=== PATIENT | female | born 1975 | race American Indian/Alaskan Native ===

== ENCOUNTER 2016-12-29 20:45 | Emergency (ER) | payer MEDICAID ==
[2016-12-29 20:58] VITALS: BP 125/87
--- NOTE | 2016-12-29 22:43 | Ultrasound Report ---
FINAL REPORT PROCEDURE: US OB \T\gt; = 14 WEEKS FETUS TECHNIQUE: Real-time transabdominal sonography of the uterus, placenta, amniotic fluid, adnexa, and fetus was performed with image documentation. Measurements were obtained to determine age/size. M-mode Doppler was used to document heartbeat. CPT 14170 HISTORY: abdominal pain COMPARISON: No prior studies are available for comparison. FINDINGS: There is a single living intrauterine gestation currently visualized in the vertex presentation with a heart rate of 179 beats per minute. Placenta is located posterior and is grade 0. No evidence of placenta abruption or placenta previa. Cervix length 3.2 centimeters. Subjectively the amount of amniotic fluid appears normal. There are 4 hypoechoic nodules in the uterine myometrium which appear to represent fibroids. One measures 6.9 centimeters another 4.3 centimeters, 3.0 centimeters in 3.0 centimeters. Two of these are located in the region of the placental implantation site. No placenta abruption is seen. Detailed exam of the anatomy was not performed today. No gross abnormality is seen. The following measurements were obtained: Biparietal diameter: 3.6 centimeter equals 17 week 1 day Head circumference 13.6 centimeter equals 17 week 0 day Abdominal circumference 12.1 centimeter equals 17 week 6 day Femur length 2.3 centimeter equals 16 week 6 day Estimated weight 189 grams IMPRESSION: There is a single living intrauterine gestation currently visualize vertex presentation. Average sonographic age by today's study 17 weeks 2 days placing the EDC at 7:20 2017 1.5 weeks. No gross abnormalities are seen. Detailed exam of the anatomy was not performed as this was not requested today. Multiple uterine fibroids are present. The placenta appears to be implanting in the same vicinity as 2 of the fibroids. No placenta abruption is seen...
[2016-12-29 22:52] LABS: Basophils % (Auto) 0.6 % (0.0-1.8); Eosinophils % (Auto) 2.5 % (0.0-4.3); Hematocrit 37.6 % (30.3-42.9); Hemoglobin 12.6 gm/dl (10.1-14.3); Mean Corpuscular HGB Conc 34 % (30-34); Mean Corpuscular Hemoglobin 34 pg (28-32); Mean Corpuscular Volume 100 fl (79-97); Platelet Count 297 K/mm3 (140-440); Red Blood Count 3.76 M/mm3 (3.65-5.03); Red Cell Distribution Width 12.5 % (13.2-15.2); White Blood Count 14.6 K/mm3 (4.5-11.0)
[2016-12-29 22:55] LABS: Alanine Aminotransferase 11 units/L (7-56); Albumin 3.6 g/dL (3.9-5); Albumin/Globulin Ratio 1.1 %; Alkaline Phosphatase 70 units/L (35-129); Anion Gap 17 mmol/L; Bilirubin,Total 0.2 mg/dL (0.1-1.2); Blood Urea Nitrogen 5 mg/dL (7-17); Calcium 9.1 mg/dL (8.4-10.2); Carbon Dioxide 24 mmol/L (22-30); Chloride 97.5 mmol/L (98-107); Glucose 90 mg/dL (65-100); Lipase 20 units/L (13-60); Potassium 4.2 mmol/L (3.6-5.0); Sodium 134 mmol/L (137-145)
[2016-12-30 00:29] LABS: Bilirubin,Urine NEG (Negative); Blood,Urine NEG (Negative); Ketones,Urine NEG (Negative); Leukocyte Esterase,Urine NEG (Negative); Mucus,Urine FEW /HPF; Nitrite,Urine NEG (Negative); Protein,Urine <15 mg/dL mg/dL (Negative); Urobilinogen,Urine < 2.0 mg/dL (<2.0)
[2016-12-30] MEDS ORDERED: TYLENOL PO ONE (02:41)
--- NOTE | 2016-12-30 15:07 | ED Elopement Review ---
ED Pt Elopement review - Results review Lab results: Laboratory Tests 12/29/16 12/29/16 12/29/16 22:21 22:21 Unknown WBC 14.6 H RBC 3.76 Hgb 12.6 Hct 37.6 MCV 100 H MCH 34 H MCHC 34 RDW 12.5 L Plt Count 297 Lymph % (Auto) 14.8 [place] % (Auto) 7.4 H Eos % (Auto) 2.5 Baso % (Auto) 0.6 Lymph # 2.2 [place] # 1.1 H Eos # 0.4 Baso # 0.1 Seg Neutrophils % 74.7 H Seg Neutrophils # 10.9 H Carbon Dioxide 24 BUN 5 L Creatinine 0.4 L Estimated GFR > 60 BUN/Creatinine Ratio 12.50 Glucose 90 Calcium 9.1 Total Bilirubin 0.2 AST 17 ALT 11 Alkaline Phosphatase 70 Total Protein 7.0 Albumin 3.6 L Albumin/Globulin Ratio 1.1 Lipase 20 Urine Color Yellow Urine Turbidity Clear Urine pH 6.0 Ur Specific [place] 1.011 Urine Protein <15 mg/dl Urine Glucose (UA) Neg Urine Ketones Neg Urine Blood Neg Urine Nitrite Neg Urine Bilirubin Neg Urine Urobilinogen < 2.0 Ur Leukocyte Esterase Neg Urine WBC (Auto) 1.0 Urine RBC (Auto) 1.0 U Epithel Cells (Auto) 7.0 Urine Mucus Few Urine HCG, Qual Positive A - Call Back decision Pt Call Back Decision: No action required
== END 2016-12-30 02:50 | disposition left against medical advice (07) ==
LOC: ED 20:45
DX: O26.892 Other specified pregnancy related conditions, second trimester (principal); R11.0 Nausea; R10.9 Unspecified abdominal pain; Z88.5 Allergy status to narcotic agent; Z3A.17 17 weeks gestation of pregnancy; Z53.21 Procedure and treatment not carried out due to patient leaving prior to being seen by health care provider
CPT/HCPCS: 36415; 76805; 80053; 81001; 81025; 83690; 85025